=== PATIENT | male | born 1965 | race Caucasian/White ===

== ENCOUNTER 2018-03-15 20:13 | Emergency (ER) | payer OTHER ==
[~2018-03-15 20:13] MED LIST: SUCCINYLCHOLINE CHLORIDE INJ 200 MG/10 ML VIAL ONE
[2018-03-15] MEDS ORDERED: LORAZEPAM INJ 2 MG/1 ML VIAL ONE (20:20)
[2018-03-15] MEDS ORDERED: ETOMIDATE INJ/PF 20 MG/10 ML SDV IV ONE ×2 (20:34→23:28)
[2018-03-15] MEDS ORDERED: PROPOFOL 1,000 MG/100 ML INFUS..BTL IV ONE (20:45)
[2018-03-15 20:46] LABS: INTERNATIONAL RATION (INR) 0.94
--- NOTE | 2018-03-15 20:46 | RADIOLOGY REPORT (SQ) ---
EXAM DESCRIPTION: CT HEAD WITHOUT COMPLETED DATE/TIME: 03/15/2018 8:23 pm REASON FOR STUDY: STROKE ALERT COMPARISON: None. TECHNIQUE: Axial images acquired through the brain without intravenous contrast. Images reviewed wi th bone, brain and subdural windows. Additional sagittal and coronal reconstructions were generated. Images stored on PACS. All CT scanners at this facility use dose modulation, iterative reconstruction, and/or weight based d osing when appropriate to reduce radiation dose to as low as reasonably achievable (ALARA). [facility]: Dose Right [facility]: CareDose [facility]: Dose Right [facility]: Teradose 4D [facility]: Boost Your Campaign RADIATION DOSE: 53 mGy. LIMITATIONS: Nonstandard radiographic positioning. Mild motion artifact FINDINGS: VENTRICLES: Normal size and contour. CEREBRUM: No gross CT evidence of acute large territory ischemic change, acute intracranial hemorrhag e, mass effect, or midline shift. Normal saleh/white matter differentiation. Old right caudate infarc t. CEREBELLUM: Low attenuation in the right cerebellar hemisphere axial image 13, could represent a acut e infarct. This finding was discussed with Dr. House EXTRAAXIAL SPACES: No fluid collections. No masses. ORBITS AND GLOBE: No intra- or extraconal masses. Normal contour of globe without masses. CALVARIUM: No fracture. PARANASAL SINUSES: No fluid or mucosal thickening. SOFT TISSUES: No mass or hematoma. OTHER: No other significant finding. IMPRESSION: Acute infarct suspected in the right cerebellar hemisphere. Old lacunar infarct right caudate. EVIDENCE OF ACUTE STROKE: Yes COMMENT: Pertinent findings on the imaging study reported as a CRITICAL RESULT to HAN HOUSE MD at20:30 on 03/15/2018. Category of Critical Result: CT stroke alert Quality ID # [id number]: Final reports with documentation of one or more dose reduction techniques (e.g., Au tomated exposure control, adjustment of the mA and/or kV according to patient size, use of iterative reconstruction technique) TECHNICAL DOCUMENTATION: JOB ID: [id number] [employer]- All Rights Reserved Reading location - IP/workstation name: [email or web address]
[2018-03-15 20:47] LABS: PARTIAL THROMBOPLASTIN TIME 30.6 SEC (23.5-35.8)
--- NOTE | 2018-03-15 20:48 | RADIOLOGY REPORT (SQ) ---
EXAM DESCRIPTION: CHEST SINGLE VIEW COMPLETED DATE/TIME: 03/15/2018 8:22 pm REASON FOR STUDY: STROKE ALERT COMPARISON: None. EXAM PARAMETERS: NUMBER OF VIEWS: One view. TECHNIQUE: Single frontal radiographic view of the chest acquired. RADIATION DOSE: NA LIMITATIONS: None. FINDINGS: LUNGS AND PLEURA: No opacities, masses or pneumothorax. No pleural effusion. MEDIASTINUM AND HILAR STRUCTURES: No masses. Contour normal. HEART AND VASCULAR STRUCTURES: Heart normal in size. Normal vasculature. BONES: No acute findings. HARDWARE: None in the chest. OTHER: No other significant finding. IMPRESSION: NO ACUTE RADIOGRAPHIC FINDING IN THE CHEST. TECHNICAL DOCUMENTATION: JOB ID: [id number] [employer]- All Rights Reserved Reading location - IP/workstation name: [email or web address]
[2018-03-15 20:49] LABS: HEMATOCRIT 51.2 % (37.9-51.0); HEMOGLOBIN 17.6 g/dL (13.5-17.0); MEAN CORPUSCULAR HEMOGLOBIN 31.9 pg (27.0-33.4); MEAN CORPUSCULAR HGB CONC 34.4 g/dL (32.0-36.0); MEAN CORPUSCULAR VOLUME 93 fl (80-97); PLATELET COUNT 249 10^3/uL (150-450); PROTHROMBIN TIME 13.1 SEC (11.4-15.4); RED BLOOD COUNT 5.53 10^6/uL (4.35-5.55); RED CELL DISTRIBUTION WIDTH 13.5 % (11.5-14.0); WHITE BLOOD COUNT 20.6 10^3/uL (4.0-10.5)
[2018-03-15 21:00] LABS: ALANINE AMINOTRANSFERASE 38 U/L (21-72); ALBUMIN 4.9 g/dL (3.5-5.0); ALKALINE PHOSPHATASE 74 U/L (38-126); ASPARTATE AMINO TRANSFERASE 30 U/L (17-59); BILIRUBIN,DIRECT 0.5 mg/dL (0.0-0.4); BILIRUBIN,TOTAL 0.8 mg/dL (0.2-1.3); BLOOD UREA NITROGEN 17 mg/dL (7-20); CALCIUM 9.4 mg/dL (8.4-10.2); CREATINE KINASE 82 U/L (55-170); GLUCOSE 194 mg/dL (75-110); POTASSIUM 4.1 mmol/L (3.6-5.0); TOTAL PROTEIN 7.6 g/dL (6.3-8.2)
--- NOTE | 2018-03-15 21:03 | ER Document Report ---
Procedures - Intubation Orotracheal Airway evaluation: Normal anatomy Mallampati Classification: Class 1 Medications: Etomidate, Succinylcholine Intubation method: Orotracheal Blade type: Saroj Blade size: 4 ETT size: 7.5 ETT secured at: Lips ETT secured at (cm): 23 Breath Sounds after Intubation: Equal End tidal CO2 confirmed: Yes Ventilator settings: SIMV Intubation Complications: No complications, Oral-unsuccessful attempt
[2018-03-15 21:05] LABS: ANION GAP 17 (5-19); CARBON DIOXIDE 18 mmol/L (22-30); CHLORIDE 103 mmol/L (98-107); SODIUM 138.4 mmol/L (137-145)
[2018-03-15 21:09] LABS: ABSOLUTE LYMPHOCYTES# (MANUAL) 1.9 10^3/uL (0.5-4.7); ABSOLUTE MONOCYTES # (MANUAL) 0.8 10^3/uL (0.1-1.4); ABSOLUTE NEUTROPHILS# (MANUAL) 17.9 10^3/uL (1.7-8.2); BASOPHILS % (MANUAL) 0 % (0-2); EOSINOPHILS % (MANUAL) 0 % (0-6); LYMPHOCYTES % (MANUAL) 7 % (13-45); MONOCYTES % (MANUAL) 4 % (3-13); SEGMENTED NEUTROPHILS % (MAN) 87 % (42-78); TOTAL CELLS COUNTED 100
[2018-03-15 21:10] LABS: PLATELET COMMENT ADEQUATE; RBC MORPHOLOGY COMMENT NORMO-CYTIC/CHROMIC
[2018-03-15 21:15] LABS: CREATINE KINASE MB 0.95 ng/mL (<4.55); TROPONIN I 0.017 ng/mL
--- NOTE | 2018-03-15 21:16 | ER Document Report ---
ED General - General Stated Complaint: LETHARGIC Time Seen by Provider: 03/15/18 20:23 Mode of Arrival: Medic Information source: Transfer Record Cannot obtain history due to: Altered mental status Notes: Time of ER arrival: 20:10 This is a 52-year-old man brought into the emergency room unresponsive. History is provided by EMS as well as pastors of the [facility] that he was at when this event occurred. He was at [facility] and there was a service going on and he was found holding his head moaning. When he was approached by the [employer] boat crewman, the patient suddenly became weak on the right side with a facial droop and shortly thereafter became unresponsive. Patient found patient unresponsive with deep sonorous breath sounds. Fingerstick at the scene was 134. His systolic blood pressure was 178 initially. Patient brought immediately to CT and I escorted patient along the way. He is unresponsive, deep sonorous breath sounds. Repeat fingerstick 178. - HPI Onset: Just prior to arrival Onset/Duration: Sudden - Related Data Allergies/Adverse Reactions: No Known Allergies Allergy (Unverified 03/15/18 22:39) Past Medical History - General Information source: Friend - Past or at the [facility], Emergency Med Personnel Cannot obtain history due to: Altered mental status - Social History Smoking Status: Never Smoker Cigarette use (# per day): No Chew tobacco use (# tins/day): No Frequency of alcohol use: None Drug Abuse: None Lives with: Alone Family History: None - Past Medical History Cardiac Medical History: Reports: Hx Hypertension Review of Systems - Review of Systems -: Yes ROS unobtainable due to patient's medical condition Physical Exam - Vital signs Vitals: Resp Pulse Ox 23 H 98 03/15/18 20:15 03/15/18 20:15 Notes: Physical exam: GENERAL: 52-year-old unresponsive man, deep sonorous breath sounds. Hyperventilating. Fingerstick 178. HEAD: Atraumatic, normocephalic. EYES: Pupils 2-3 mm round and reactive to light, extraocular movements intact, sclera anicteric, conjunctiva injected. ENT: Oropharynx clear secretions. Moist mucous membranes. NECK: Normal range of motion, supple without obvious mass. LUNGS: Scattered rhonchi bilaterally HEART: Tachycardia without murmurs, rubs or gallops. ABDOMEN: Soft, normoactive bowel sounds. Mildly distended. No masses appreciated. EXTREMITIES: Normal range of motion, no pitting or edema. No clubbing or cyanosis. NEUROLOGICAL: Patient is unresponsive. He intermittently withdraws to pain. He does have some decerebrate posturing more so on the left side. He is hyper reflexic and his plantars are upgoing SKIN: Warm, Dry, normal turgor, no rashes or lesions noted. Course - Re-evaluation Re-evalutation: 03/15/18 21:16 Note: Having episodes of apnea: Intubated emergently. Carlito case with Dr. Rojas who is read the CAT scan of the head. There is a low-attenuation area in the right cerebral hemisphere suggestive of an acute right cerebellar stroke. Patient intubated with etomidate and succinyl choline Sedation with Ativan and propofol drip. Patient currently ventilated:SIMV/PS Vt 500 RR 20 Peep 5 PS 10 FIO2 60% Vitals: BP 153/77, P 97, HR 116, O2 sat 97% 03/15/18 21:31 I discussed case with Christopher is covering for Dr. Sabillon at [facility]: We will transfer the patient there. 03/15/18 21:33 03/15/18 22:01 Flight crew is here - Vital Signs Vital signs: Temp Pulse Resp BP Pulse Ox 78 20 69/41 L 94 03/15/18 21:00 03/15/18 22:06 03/15/18 22:06 03/15/18 22:05 - Laboratory Result Diagrams: 03/15/18 20:20 03/15/18 20:20 Laboratory results interpreted by me: 03/15/18 03/15/18 20:20 20:20 WBC 20.6 H Hgb 17.6 H Hct 51.2 H Seg Neuts % (Manual) 87 H Lymphocytes % (Manual) 7 L Abs Neuts (Manual) 17.9 H Carbon Dioxide 18 L Glucose 194 H Direct Bilirubin 0.5 H - Diagnostic Test Radiology reviewed: Image reviewed, Reports reviewed - Post intubation film: ET tube at clavicle. OG tube in stomach - EKG Interpretation by Me Rate: Tachycardia - EKG shows sinus tachycardia with a ventricular rate of 107, artifact present. Critical Care Note - Critical Care Note Total time excluding time spent on procedures (mins): 70 Discharge - Discharge Clinical Impression: Acute right cerebellar stroke Condition: Stable Disposition: [facility]
--- NOTE | 2018-03-15 21:31 | RADIOLOGY REPORT (SQ) ---
EXAM DESCRIPTION: XR CHEST 1 VIEW COMPLETED DATE/TME: 03/15/2018 21:01 CLINICAL HISTORY: 52 years, Male, s/p intubation Compared to chest radiograph dated 03/15/2018 at 8:14 PM. FINDINGS: Heart is mildly enlarged. Endotracheal tube is in appropriate placement with tip about 6 cm the dylan. No pneumothorax. No pulmonary edema. No pleural effusions. IMPRESSION: Endotracheal tube is in place.
[2018-03-15 22:29] VITALS: BP 69/41
[2018-03-15] MEDS ORDERED: PROPOFOL 1,000 MG/100 ML INFUS..BTL IV PRN (23:29)
[2018-03-15] MEDS ORDERED: SUCCINYLCHOLINE CHLORIDE INJ 200 MG/10 ML VIAL IV ONE (23:29)
[2018-03-15] MEDS ORDERED: LORAZEPAM INJ 2 MG/1 ML VIAL IV ONE (23:29)
--- NOTE | 2018-03-16 19:26 | EKG REPORT ---
SEVERITY:- BORDERLINE ECG - SINUS TACHYCARDIA PROBABLE LEFT ATRIAL ABNORMALITY BORDERLINE T WAVE ABNORMALITIES : Confirmed by: Frandy Barron 16-Mar-2018 19:25:15
== END 2018-03-15 22:06 | disposition short-term general hospital (02) ==
LOC: EDBD 20:13 → ER 20:13
DX: I63.9 Cerebral infarction, unspecified (principal); I10 Essential (primary) hypertension; R06.4 Hyperventilation; R00.0 Tachycardia, unspecified; R09.89 Other specified symptoms and signs involving the circulatory and respiratory systems; R14.0 Abdominal distension (gaseous)
CPT/HCPCS: 93005; 99291; 51702; 36415; 82553; 82962; 82550; 85025; 85610; 85730; 80053; 84484; 71045; 70450; 94660; 93010; 31500; J0330